=== PATIENT | female | born 1970 | race Caucasian/White ===

== ENCOUNTER 2020-03-20 18:44 | Outpatient (REF) | payer MEDICARE, MEDICAID, SELFPAY ==
--- NOTE | 2020-03-20 | MR_ITS ---
EXAMINATION: MR HIP WITHOUT CONTRAST, RIGHT CLINICAL INFORMATION: Right hip pain COMPARISON: X-ray 06/17/2018 TECHNIQUE: MRI of the right hip was obtained using routine sequences on a high-field strength magnet. FINDINGS: BONE/JOINTS: Mild right hip arthritis. There is a subchondral cyst and mild edema in the superior acetabulum, with overlying cartilage heterogeneity. No fracture, avascular necrosis, or stress reaction. No significant joint effusion. The right SI joint appears unremarkable. Symphysis pubis is intact. Visualized pelvic bones appear intact. On the coronal sequence of the pelvis, no diastases of the left SI joint. Normal articulation of the left hip joint. LABRUM: Intermediate signal extending to the base of the anterosuperior labrum, image 9 series 6, suspicious for a tear. There is otherwise thin caliber of the anterosuperior and posterosuperior labrum, (approximately 11-1 o'clock location) as visualized on the coronal sequence of the pelvis, with intermediate T2 signal in its base, which could represent degenerative changes, with possible associated tear. MUSCLES/TENDONS: Gluteus minimus, gluteus medius, iliopsoas, rectus femoris, common hamstring tendons are intact. No muscle tear. MISCELLANEOUS: No groin lymphadenopathy. Visualized urinary bladder appears unremarkable.. MR/MR hip RT wo con IMPRESSION: 1. Mild right hip arthritis. 2. Findings suspicious for a focal tear in the anterosuperior labrum. Additional findings in the anterosuperior and the posterosuperior labrum, could represent degenerative changes, degenerative tearing, or a combination of these. See details above.
== END 2020-03-20 18:45 | disposition home or self-care (01) ==
LOC: HO.MRI 18:44
PROVIDERS: PCP Hospitalist; Visit Provider Student in an Organized Health Care Education/Training Program
DX: M25.851 Other specified joint disorders, right hip (principal); R52 Pain, unspecified
CPT/HCPCS: 73721

== ENCOUNTER 2020-04-26 10:25 | Outpatient (REF) | payer MEDICARE, MEDICAID, SELFPAY | END 2020-04-26 10:26 | disposition home or self-care (01) | LOC: HO.LAB 10:25 | PROVIDERS: Visit Provider Internal Medicine | DX: Z20.828 Contact with and (suspected) exposure to other viral communicable diseases (principal) | CPT/HCPCS: C9803; U0003 ==

== ENCOUNTER 2020-06-18 10:20 | Outpatient (REF) | payer MEDICARE, MEDICAID, SELFPAY | END 2020-06-18 10:21 | disposition home or self-care (01) | LOC: HO.HAP 10:20 | PROVIDERS: PCP Hospitalist; Visit Provider Otolaryngology | DX: Z46.1 Encounter for fitting and adjustment of hearing aid (principal); H90.11 Conductive hearing loss, unilateral, right ear, with unrestricted hearing on the contralateral side | CPT/HCPCS: 92590; V5275 ==

== ENCOUNTER 2020-07-05 10:17 | Outpatient (REF) | payer MEDICARE, MEDICAID, SELFPAY | END 2020-07-05 10:18 | disposition home or self-care (01) | LOC: HO.HAP 10:17 | PROVIDERS: Visit Provider Otolaryngology | DX: Z46.1 Encounter for fitting and adjustment of hearing aid (principal); H90.11 Conductive hearing loss, unilateral, right ear, with unrestricted hearing on the contralateral side | CPT/HCPCS: V5011; V5020; V5241; V5256; V5266 ==

== ENCOUNTER 2021-12-20 12:10 | Day surgery (SDC) | payer MEDICARE, MEDICAID, SELFPAY ==
--- NOTE | 2021-12-20 12:33 | HO.ANESPROP2 ---
HPI - Anesthesia Eval Consult details Narrative: 50 yo female patient for colonoscopy PMF Active Problems Active Problems: Asthma. Inhaler prn Migraines- rare Past Medical History Medical History (Updated 12/16/21 @ 14:09 by Selene English RN) Asthma Back pain GERD (gastroesophageal reflux disease) Hearing loss Hip pain Migraine Family History Family history of problems with anesthesia: No Surgical History Surgical History (Updated 12/16/21 @ 14:09 by Selene English RN) History of appendectomy History of back surgery History of cholecystectomy History of ear surgery History of esophagogastroduodenoscopy (EGD) Hx of colonoscopy History of Problems with Anesthesia: No Social History Social History Advance Directives: No Advance Directives Information Provided: Yes Meds Allergies Allergy/AdvReac Type Severity Reaction Status Date / Time morphine [MORPHINE] Allergy Unknown CHEST Unverified 12/16/21 14:10 TIGHTNESS Home Medications Medication Instructions Recorded Confirmed Last Taken Type bisacodyl 5 mg tablet,delayed 5 mg PO BEDTIME 12/16/21 12/16/21 Unknown History release (Dulcolax (bisacodyl)) esomeprazole magnesium 40 mg 40 mg PO DAILY 12/16/21 12/16/21 Unknown History capsule,delayed release (Nexium) famotidine 40 mg tablet 40 mg PO BID 12/16/21 12/16/21 Unknown History pregabalin 75 mg capsule (Lyrica) 75 mg PO BID 12/16/21 12/16/21 Unknown History ranitidine HCl 300 mg tablet mg 12/16/21 Unknown History Exam Exam Date and Time: December 20, 2021 1233 Height,Weight and Vital Signs: Height 5 ft 4 in Weight 72.575 kg Vital Signs Temp Pulse Resp BP Pulse Ox O2 Del Method 12/20/21 12:36 98.1 F 87 18 112/79 97 Room Air Airway Mallampati Class: II TM Dist: >3cm Neck ROM: Full Loose/Missing/Broken Teeth: Yes (? Top right incisor loose?? pushed in and may fall out if you put something in my mouth ) Heart: RRR Lungs: CTAB Assessment and Plan Assessment Anesthesia Assessment: Anesthesia Plan Discussed and Chart Reviewed Final Anesthetic Review Family History of Problems with Anesthesia: No History of Problems with Anesthesia: No NPO: Yes ASA Class: II Final Preanesthetic Review: No Changes in Pt Med Stat, Meds/Allgs Chart Reviewed, Consent Obtained/Reviewed and Anes Risks/Benef Reviewed Patient Risk: Low Procedure Risk: Low Assessment/Block/Sedation in SS: Assess/Block/Sedation-SS Anesthetic Plan Anesthetic Plan: MAC: Disposition: Standard PACU
[2021-12-20 12:36] VITALS: BP 112/79; PULSE 87; RESP 18; TEMP 36.7; O2SAT 97
[2021-12-20 12:37] VITALS: BMI 27.4
[2021-12-20 12:49] VITALS: BP 112/79; PULSE 87; RESP 18; TEMP 36.7; O2SAT 97
--- NOTE | 2021-12-20 12:49 | MHC.SHP ---
Pre-Procedural Eval Section A Date of Service: 12/20/21 The History & Physical has been completed within 30 days and I have reviewed it.: No Section B Chief Complaint: screening Details of Present Illness: see H&P no changes Relevant Family History (Specify if Yes): No Relevant Social History: None Present Medications: see Short Stay Collaborative assessment Medical History: No relevant PMH History of Previous Operations: No relevant previous surgery Allergies: Allergies Allergy/AdvReac Type Severity Reaction Status Date / Time morphine [MORPHINE] Allergy Unknown CHEST Verified 12/20/21 12:46 TIGHTNESS Review of Systems Sugical H&P ROS: Negative: Constitution, Cardiovascular, Respiratory, Neurological, Psychiatric, Hem-Onc, Allergic/Immunologic, Gastrointestinal, Genitourinary, Musculoskeletal, Integumentary, Endocrine and Eyes/Ears/Nose/Throat Exam Surgical H&P Exam: Normal: HEENT, Normal: Heart, Normal: Lungs, Normal: Extremities, Normal: Abdomen, Normal: Skin and Normal: Neurological Plan Diagnosis/Plan: Unchanged I have reviewed the history and physical and performed a pertinent physical examination on my patient. No changes have occurred unless specified.
[2021-12-20] MEDS: Lactated Ringers 1,000 ML 100 ML IVCONT (12:50)
[2021-12-20 13:26] VITALS: BP 96/50; PULSE 98; RESP 16; TEMP 36.1; O2SAT 91
--- NOTE | 2021-12-20 13:40 | P.BOP_ITS ---
Brief Operative Note Date of Service: 12/20/21 Pre-op diagnosis: screening Post-op diagnosis: same Procedure: colonoscopy Surgeon: Conrad Buchanan Anesthesia: MAC Was an Field Technician used for this Procedure?: No Estimated blood loss (mL): 2 Pathology: none sent Condition: stable Disposition: PACU
[2021-12-20 13:41] VITALS: BP 105/79; PULSE 84; RESP 16; TEMP 36.1; O2SAT 100
--- NOTE | 2021-12-20 23:49 | OP_ITS ---
SURGEON: Conrad Buchanan MD INDICATIONS: Colon cancer screening. PREOPERATIVE DIAGNOSIS: POSTOPERATIVE DIAGNOSIS: PROCEDURE PERFORMED: Colonoscopy to the terminal ilium. ESTIMATED BLOOD LOSS: COMPLICATIONS: ANESTHESIA: Monitored anesthesia care. ASSISTANTS: SPECIMENS: DESCRIPTION OF PROCEDURE: The history and physical was performed. The risks and benefits of the procedure were explained to the patient, and informed consent was obtained. The patient was placed in the left lateral decubitus position. A digital rectal exam was performed and was found to be normal. The Olympus pediatric video colonoscope was introduced into the rectum and advanced to the cecum without difficulty. The cecum was identified by transillumination, palpation, and identification of ileocecal valve. Examination was performed, and the scope was removed. She tolerated the procedure well was taken to the recovery room in stable condition. FINDINGS: The terminal ileum was examined and appeared normal. The visualized colonic mucosa was normal. There was undigested food material in the right colon, cecum, and sigmoid; which limits the sensitivity examination for detection of polyps in these areas. This could not be suctioned due to the nature of the material. No polyps were identified. Retroflexed examination was normal. There were small internal hemorrhoids. IMPRESSION: Limited colonoscopy. RECOMMENDATION: 1. Follow up office visit in the fall. 2. Consider repeat colonoscopy in 6 to 12 months with a 2 day prep. MD KELSEY Jacob/VALERIEL / [id number]
== END 2021-12-20 14:26 | disposition home or self-care (01) ==
PROVIDERS: PCP Hospitalist; Visit Provider Internal Medicine Gastroenterology
PROC: 0DJD8ZZ Inspection of Lower Intestinal Tract, Via Natural or Artificial Opening Endoscopic (ICD-10-PCS; CPT 45378; principal; 2021-12-20 12:10)
DX: Z12.11 Encounter for screening for malignant neoplasm of colon (principal); Z83.71 Family history of colonic polyps; K64.8 Other hemorrhoids; K58.9 Irritable bowel syndrome, unspecified; R79.89 Other specified abnormal findings of blood chemistry; K21.9 Gastro-esophageal reflux disease without esophagitis; M70.70 Other bursitis of hip, unspecified hip; M54.9 Dorsalgia, unspecified; H91.90 Unspecified hearing loss, unspecified ear; Z79.899 Other long term (current) drug therapy; Z90.49 Acquired absence of other specified parts of digestive tract; Z88.8 Allergy status to other drugs, medicaments and biological substances
CPT/HCPCS: G0105